=== PATIENT | male | born 1970 | race Caucasian/White ===

== ENCOUNTER 2018-11-28 13:44 | Emergency (ER) | payer BC, OTHER ==
[~2018-11-28] VITALS: Ht 185.4 cm; Wt 99.8 kg
--- OUTSIDE RECORDS SUMMARY | 2018-11-28 13:51 | XMS REPORT ---
Author Author SANYA YAP [facility] Address [address] [place] [address] Care Team Providers Care Fitter/Welder Name Role Phone SANYA YAP Unavailable PROBLEMS Type Condition ICD9-CM Code DRQ64-OF Code Onset Dates Condition Status SNOMED Code Problem Coronary artery disease involving [place] coronary artery of [place] heart without angina pectoris I25.10 Active 1296421465577 Problem Irritable bowel syndrome with both constipation and diarrhea K58.2 Active 34922599 ALLERGIES No Known Allergies ENCOUNTERS Encounter Location Date Diagnosis [id number] [place] [address] [id number] Jul, [place] [id number] [place] [address] [id number] Jun, Coronary artery disease involving [place] coronary artery of [place] heart without angina pectoris I25.10 and Irritable bowel syndrome with both constipation and diarrhea K58.[address] [place] [address] [id number] Apr, Coronary artery disease involving [place] coronary artery of [place] heart without angina pectoris I25.10 and Irritable bowel syndrome with both constipation and diarrhea K58.[address] [facility] [address] [id number] [place] [address] Dec, Irritable bowel syndrome with both constipation and diarrhea K58.[id number] [place] [address] [id number] Nov, Irritable bowel syndrome with both constipation and diarrhea K58.2 [address] [place] [address] [id number] Nov, Generalized abdominal pain R10.84 IMMUNIZATIONS No Known Immunizations SOCIAL HISTORY Never Assessed REASON FOR VISIT Stomach pain, states he feels a knot in abd KJones RN PLAN OF CARE Activity Details Follow Up 1 Week Reason:abd pain VITAL SIGNS Height 72 in 2016-12-15 Weight 243.2 lbs 2016-12-15 Temperature 98.5 degrees Fahrenheit 2016-12-15 Heart Rate 79 bpm 2016-12-15 Respiratory Rate 18 2016-12-15 BMI 32.98 kg/m2 2016-12-15 Blood pressure systolic 118 mmHg 2016-12-15 Blood pressure diastolic 72 mmHg 2016-12-15 MEDICATIONS Medication Instructions Dosage Frequency Start Date End Date Duration Status Simethicone Extra Strength 125 MG Orally Four times a day 1 capsule after meals and at bedtime as needed 6h Nov, Active Dicyclomine HCl 10 mg Orally 3 times a day w meal 1 capsules Nov, Active RESULTS Name Result Date Reference Range KUB PROCEDURES No Known procedures INSTRUCTIONS MEDICATIONS ADMINISTERED No Known Medications MEDICAL (GENERAL) HISTORY Type Description Date Medical History 04/26/17, [place] Surgical History appendectomy Sep 2015 Surgical History cholecystectomy Sep 2015 Surgical History exploratory abd surgery Sep 2015 Hospitalization History surgery Hospitalization History abd issues Hospitalization History [place] [facility] 04/26/17
--- OUTSIDE RECORDS SUMMARY | 2018-11-28 13:51 | XMS REPORT ---
Author Author SANYA YAP [facility] Address [address] [place] [address] Care Team Providers Care Pharmacoepidemiologist Name Role Phone SANYA YAP Unavailable PROBLEMS Type Condition ICD9-CM Code HKH35-ZI Code Onset Dates Condition Status SNOMED Code Problem Coronary artery disease involving [place] coronary artery of [place] heart without angina pectoris I25.10 Active [id number] Problem Irritable bowel syndrome with both constipation and diarrhea K58.2 Active 15363777 ALLERGIES No Known Allergies ENCOUNTERS Encounter Location Date Diagnosis [id number] [place] [address] [id number] Jul, [place] [id number] [place] [address] [id number] Jun, Coronary artery disease involving [place] coronary artery of [place] heart without angina pectoris I25.10 and Irritable bowel syndrome with both constipation and diarrhea K58.[address] [place] [address] [id number] Apr, Coronary artery disease involving [place] coronary artery of [place] heart without angina pectoris I25.10 and Irritable bowel syndrome with both constipation and diarrhea K58.2 [facility] [address] [id number] [place] [address] Dec, Irritable bowel syndrome with both constipation and diarrhea K58.[id number] [place] [address] [id number] Nov, Irritable bowel syndrome with both constipation and diarrhea K58.[address] [place] [address] [id number] Nov, Generalized abdominal pain R10.84 IMMUNIZATIONS No Known Immunizations SOCIAL HISTORY Never Assessed REASON FOR VISIT Abdominal Pain Follow Up, states it is better Polly ZAVALA PLAN OF CARE Activity Details Follow Up 2 Months Reason:ibs VITAL SIGNS Height 72 in 2016-12-21 Weight 228.3 lbs 2016-12-21 Temperature 97.4 degrees Fahrenheit 2016-12-21 Heart Rate 82 bpm 2016-12-21 Respiratory Rate 18 2016-12-21 BMI 30.96 kg/m2 2016-12-21 Blood pressure systolic 118 mmHg 2016-12-21 Blood pressure diastolic 60 mmHg 2016-12-21 MEDICATIONS Medication Instructions Dosage Frequency Start Date End Date Duration Status Simethicone Extra Strength 125 MG Orally Four times a day 1 capsule after meals and at bedtime as needed 6h Nov, Active Dicyclomine HCl 10 mg Orally 3 times a day w meal 1 capsules Nov, Active RESULTS No Results PROCEDURES No Known procedures INSTRUCTIONS MEDICATIONS ADMINISTERED No Known Medications MEDICAL (GENERAL) HISTORY Type Description Date Medical History 04/26/17, [place] Surgical History appendectomy Sep 2015 Surgical History cholecystectomy Sep 2015 Surgical History exploratory abd surgery Sep 2015 Hospitalization History surgery Hospitalization History abd issues Hospitalization History ROMEO Segovia 04/26/17
--- OUTSIDE RECORDS SUMMARY | 2018-11-28 13:51 | XMS REPORT ---
Author Author SANYA YAP [facility] Address [address] [place] [address] Care Team Providers Care Graphic User Interface Designer Name Role Phone SANYA YAP Unavailable PROBLEMS Type Condition ICD9-CM Code ENQ35-SM Code Onset Dates Condition Status SNOMED Code Problem Coronary artery 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 angina pectoris I25.10 Active [id number] Problem Irritable bowel syndrome with both constipation and diarrhea K58.2 Active 39288059 ALLERGIES No Known Allergies ENCOUNTERS Encounter Location Date Diagnosis [id number] [place] [address] [id number] Jun, Coronary artery 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 angina pectoris I25.10 and Irritable bowel syndrome with both constipation and diarrhea K58.2 [address] [id number] Apr, Coronary artery 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 angina pectoris I25.10 and Irritable bowel syndrome with both constipation and diarrhea K58.2 [facility] [address] [id number] [place] [address] Dec, Irritable bowel syndrome with both constipation and diarrhea K58.[id number] [place] [address] [id number] Nov, Irritable bowel syndrome with both constipation and diarrhea K58.[address] [id number] [phone] Nov, Generalized abdominal pain R10.84 IMMUNIZATIONS No Known Immunizations SOCIAL HISTORY Never Assessed REASON FOR VISIT Hospital f/u for [place] on 04/26/17 then trasfered to [facility], ER visit for the flu Polly ZAVALA PLAN OF CARE Activity Details Follow Up 4 Weeks Reason:cad VITAL SIGNS Height 72 in 2017-05-13 Weight 228.4 lbs 2017-05-13 Temperature 97.7 degrees Fahrenheit 2017-05-13 Heart Rate 88 bpm 2017-05-13 Respiratory Rate 18 2017-05-13 BMI 30.97 kg/m2 2017-05-13 Blood pressure systolic 100 mmHg 2017-05-13 Blood pressure diastolic 60 mmHg 2017-05-13 MEDICATIONS Medication Instructions Dosage Frequency Start Date End Date Duration Status Plavix 75 MG Orally Once a day 1 tablet 24h Active Aspir-81 81 MG Orally Once a day 1 tablet 24h Active Dicyclomine HCl 10 mg Orally 3 times a day w meal 1 capsules Nov, Active Coreg 3.125 MG Orally 2 times a day 1 tab 12h Apr, Active Fish Oil 1000 MG Orally Once a day 2 capsule 24h Active Atorvastatin Calcium 20 mg Orally Once a day 1 tablet 24h Apr, Active RESULTS No Results PROCEDURES No Known procedures INSTRUCTIONS MEDICATIONS ADMINISTERED No Known Medications MEDICAL (GENERAL) HISTORY Type Description Date Medical History 04/26/17, [place] Surgical History appendectomy Sep 2015 Surgical History cholecystectomy Sep 2015 Surgical History exploratory abd surgery Sep 2015 Hospitalization History surgery Hospitalization History abd issues Hospitalization History [place] [facility] Segovia 04/26/17
--- OUTSIDE RECORDS SUMMARY | 2018-11-28 13:51 | XMS REPORT ---
Author Author SANYA YAP [facility] Address [address] [place] [address] Care Team Providers Care Ratings Analyst Name Role Phone SANYA YAP Unavailable PROBLEMS Type Condition ICD9-CM Code ZMX91-CP Code Onset Dates Condition Status SNOMED Code Problem Coronary artery disease involving [place] coronary artery of [place] heart without angina pectoris I25.10 Active [id number] Problem Irritable bowel syndrome with both constipation and diarrhea K58.2 Active 56354002 ALLERGIES No Known Allergies ENCOUNTERS Encounter Location Date Diagnosis [address] [place] [address] [id number] Jun, Coronary artery disease involving [place] coronary artery of [place] heart without angina pectoris I25.10 and Irritable bowel syndrome with both constipation and diarrhea K58.2 [facility] [address] [facility] [id number] [phone] Apr, Coronary artery disease involving [place] coronary artery of [place] heart without angina pectoris I25.10 and Irritable bowel syndrome with both constipation and diarrhea K58.2 [facility] [address] [id number] [place] [address] Dec, Irritable bowel syndrome with both constipation and diarrhea K58.[address] [id number] [phone] Nov, Irritable bowel syndrome with both constipation and diarrhea K58.[address] [id number] [phone] Nov, Generalized abdominal pain R10.84 IMMUNIZATIONS No Known Immunizations SOCIAL HISTORY Never Assessed REASON FOR VISIT CHM- f/u on JORGE L Gil MA PLAN OF CARE Activity Details Follow Up 4 Weeks Reason:ibs VITAL SIGNS Height 72 in 2017-07-22 Weight 226 lbs 2017-07-22 Temperature 97.8 degrees Fahrenheit 2017-07-22 Heart Rate 78 bpm 2017-07-22 Respiratory Rate 16 2017-07-22 BMI 30.65 kg/m2 2017-07-22 Blood pressure systolic 100 mmHg 2017-07-22 Blood pressure diastolic 64 mmHg 2017-07-22 MEDICATIONS Medication Instructions Dosage Frequency Start Date End Date Duration Status Plavix 75 MG Orally Once a day 1 tablet 24h Not-Taking Fish Oil 1000 MG Orally Once a day 2 capsule 24h Not-Taking Aspir-81 81 MG Orally Once a day 1 tablet 24h Not-Taking Imodium A-D 2 MG Orally 2 times a day 1 tablet as needed 12h Jun, Active Atorvastatin Calcium 20 mg Orally Once a day 1 tablet 24h Apr, Active Coreg 3.125 MG Orally 2 times a day 1 tab 12h Apr, Not-Taking RESULTS No Results PROCEDURES No Known procedures INSTRUCTIONS MEDICATIONS ADMINISTERED No Known Medications MEDICAL (GENERAL) HISTORY Type Description Date Medical History 04/26/17, [place] Surgical History appendectomy Sep 2015 Surgical History cholecystectomy Sep 2015 Surgical History exploratory abd surgery Sep 2015 Hospitalization History surgery Hospitalization History abd issues Hospitalization History [place] Se[facility] Segovia 04/26/17
[2018-11-28] MEDS ORDERED: ASPIRIN 81 MG CHEW (CHILDREN'S ASA) PO ONE (14:15)
[2018-11-28 14:22] LABS: BASOPHILS % (AUTO) 0 % (0-10); EOSINOPHILS # (AUTO) 0.1 10^3/uL (0.0-0.3); EOSINOPHILS % (AUTO) 1 % (0-10); HEMATOCRIT 46 % (40-54); HEMOGLOBIN 15.7 G/DL (13.3-17.7); LYMPHOCYTES # (AUTO) 2.1 X 10^3 (1.0-4.0); LYMPHOCYTES % (AUTO) 20 % (12-44); MEAN CORPUSCULAR HEMOGLOBIN 28 PG (25-34); MEAN CORPUSCULAR HGB CONC 34 G/DL (32-36); MEAN CORPUSCULAR VOLUME 81 FL (80-99); MEAN PLATELET VOLUME 9.9 FL (7.4-10.4); MONOCYTES # (AUTO) 0.8 X 10^3 (0.0-1.0); MONOCYTES % (AUTO) 7 % (0-12); NEUTROPHILS # (AUTO) 7.8 X 10^3 (1.8-7.8); NEUTROPHILS % (AUTO) 72 % (42-75); PLATELET COUNT 397 10^3/uL (130-400); RED CELL DISTRIBUTION WIDTH 13.5 % (10.0-14.5); WHITE BLOOD COUNT 10.8 10^3/uL (4.3-11.0)
--- NOTE | 2018-11-28 14:28 | ED Chest Pain ---
General Chief Complaint: Chest Pain Stated Complaint: CHEST TIGHTNESS/SOA Nursing Triage Note: PT STATES CURRENT CHEST PAIN STARTED BACK PAIN LAST NIGHT, HX OF AMI LAST YEAR. Nursing Sepsis Screen: No Definite Risk Source: patient Exam Limitations: no limitations History of Present Illness Date Seen by Provider: Nov 28, 2018 Time Seen by Provider: 14:06 Initial Comments Here with 2 days of central chest pain and back pain that has been persistent over that timeframe. Does report some shortness of breath but no other significant symptoms. Reports that he had an acute myocardial infarction last April but did not receive any stents and he is not currently on any medicines. He states he is supposed to be but isn't. Has not had aspirin today. Timing/Duration: 1-2 days Severity/Quality: moderate, tightness Location: central Radiation: back Activities at Onset: none Prior CP/Workup: cardiac cath, heart attack ASA po PAD MACHINE OFFBEARER: No NTG SL PAD MACHINE OFFBEARER: No Associated Symptoms: back pain; No diaphoresis, No edema; fatigue; No fever/chills, No nausea/vomiting; shortness of breath; No weakness Allergies and Home Medications Allergies Coded Allergies: No Known Drug Allergies (Unverified , 11/28/18) Home Medications Albuterol Sulfate 1 Puff Puff, 2 PUFF INH Q4H PRN for WHEEZING 1 PUFF = 90 MCG Prescribed by: CARO HORVATH on 11/28/18 1640 Patient Home Medication List Home Medication List Reviewed: Yes Review of Systems Review of Systems Constitutional: see HPI; No chills, No fever EENTM: No Symptoms Reported Respiratory: See HPI Cardiovascular: See HPI; Denies Irregular Heart Rate Gastrointestinal: Denies Nausea, Denies Vomiting Genitourinary: No Symptoms Reported Musculoskeletal: no symptoms reported Skin: no symptoms reported Psychiatric/Neurological: No Symptoms Reported Endocrine: No Symptoms Reported All Other Systems Reviewed Negative Unless Noted: Yes Past Rhwjfrm-Omkpbk-Fkoqrx Hx Past Med/Social Hx: Reviewed Nursing Past Med/Soc Hx Patient Social History Alcohol Use: Denies Use Recreational Drug Use: No (HX 0F DRUG USE, CLEAN FOR YEARS) Smoking Status: Current Everyday Smoker Type Used: Cigarettes Recent Foreign Travel: No Contact w/Someone Who Travel: No Recent Infectious Disease Expo: No Recent Hopitalizations: No Physical Abuse: No Sexual Abuse: No Mistreated: No Fear: No Seasonal Allergies Seasonal Allergies: No Past Medical History Surgeries: Yes Abdominal, Appendectomy, Gallbladder Respiratory: No Cardiac: Yes ("HEART ATTACK BUT NO DAMAGE TO HEART"-NO STENTS) Neurological: No Genitourinary: No Gastrointestinal: No Musculoskeletal: No Endocrine: No HEENT: No Cancer: No Psychosocial: No Integumentary: No Family Medical History Reviewed Nursing Family Hx No Pertinent Family Hx Physical Exam Vital Signs Vital Signs - First Documented 11/28/18 13:50 Temp 99.5 Pulse 94 Resp 20 B/P (MAP) 145/90 (108) Pulse Ox 97 O2 Delivery Room Air Capillary Refill : Less Than 3 Seconds Height, Weight, BMI Height: 6'1.00" Weight: 220lbs. oz. 99.990147jz; BMI Method:Stated General Appearance: No Apparent Distress, WD/WN HEENT: PERRL/EOMI, Pharynx Normal Neck: Non Tender, Supple Respiratory: Lungs Clear, Normal Breath Sounds Cardiovascular: Regular Rate, Rhythm, No Murmur Gastrointestinal: Non Tender, Soft Extremity: Normal Range of Motion, Non Tender Neurologic/Psychiatric: Alert, Oriented x3 Skin: Normal Color, Warm/Dry Progress/Results/Core Measures Results/Orders Lab Results Laboratory Tests Test 11/28/18 13:55 Range/Units White Blood Count 10.8 4.3-11.0 10^3/uL Red Blood Count 5.65 4.35-5.85 10^6/uL Hemoglobin 15.7 13.3-17.7 G/DL Hematocrit 46 40-54 % Mean Corpuscular Volume 81 80-99 FL Mean Corpuscular Hemoglobin 28 25-34 PG Mean Corpuscular Hemoglobin Concent 34 32-36 G/DL Red Cell Distribution Width 13.5 10.0-14.5 % Platelet Count 397 130-400 10^3/uL Mean Platelet Volume 9.9 7.4-10.4 FL Neutrophils (%) (Auto) 72 42-75 % Lymphocytes (%) (Auto) 20 12-44 % Monocytes (%) (Auto) 7 0-12 % Eosinophils (%) (Auto) 1 0-10 % Basophils (%) (Auto) 0 0-10 % Neutrophils # (Auto) 7.8 1.8-7.8 X 10^3 Lymphocytes # (Auto) 2.1 1.0-4.0 X 10^3 Monocytes # (Auto) 0.8 0.0-1.0 X 10^3 Eosinophils # (Auto) 0.1 0.0-0.3 10^3/uL Basophils # (Auto) 0.0 0.0-0.1 10^3/uL Prothrombin Time 13.9 12.2-14.7 SEC INR Comment 1.0 0.8-1.4 Activated Partial Thromboplast Time 29 24-35 SEC D-Dimer 1.56 H 0.00-0.49 UG/ML Sodium Level 138 135-145 MMOL/L Potassium Level 3.6 3.6-5.0 MMOL/L Chloride Level 104 98-107 MMOL/L Carbon Dioxide Level 23 21-32 MMOL/L Anion Gap 11 5-14 MMOL/L Blood Urea Nitrogen 16 7-18 MG/DL Creatinine 0.98 0.60-1.30 MG/DL Estimat Glomerular Filtration Rate > 60 BUN/Creatinine Ratio 16 Glucose Level 131 H 70-105 MG/DL Calcium Level 9.5 8.5-10.1 MG/DL Corrected Calcium 9.3 8.5-10.1 MG/DL Magnesium Level 1.9 1.8-2.4 MG/DL Total Bilirubin 0.4 0.1-1.0 MG/DL Aspartate Amino Transf (AST/SGOT) 18 5-34 U/L Alanine Aminotransferase (ALT/SGPT) 34 0-55 U/L Alkaline Phosphatase 104 40-136 U/L Myoglobin 33.5 10.0-92.0 NG/ML Troponin I < 0.028 <0.028 NG/ML Total Protein 7.2 6.4-8.2 GM/DL Albumin 4.3 3.2-4.5 GM/DL My Orders Orders - CARO HORVATH MD Ekg Tracing (11/28/18 13:49) Cbc With Automated Diff (11/28/18 14:11) Magnesium (11/28/18 14:11) Chest 1 View, Ap/Pa Only (11/28/18 14:11) Cardiac Profile 1 (11/28/18 14:11) Comprehensive Metabolic Panel (11/28/18 14:11) Myoglobin Serum (11/28/18 14:11) Protime With Inr (11/28/18 14:11) Partial Thromboplastin Time (11/28/18 14:11) O2 (11/28/18 14:11) Monitor-Rhythm Ecg Trace Only (11/28/18 14:11) Lipid Panel (11/29/18 06:00) Ed Iv/Invasive Line Start (11/28/18 14:11) Aspirin Chewable Tablet (Baby Aspirin Ch (11/28/18 14:15) Fibrin Degradation Products (11/28/18 14:11) Ed Iv/Invasive Line Start (11/28/18 14:29) Ns Iv 1000 Ml (Sodium Chloride 0.9%) (11/28/18 14:29) Ct Angio Chest W (11/28/18 14:46) Iohexol Injection (Omnipaque 350 Mg/Ml 1 (11/28/18 15:00) Di Iv Start (Assessment) .IV start (11/28/18 14:50) Received Contrast (Hold Metformin- Contr (11/28/18 15:00) Ns (Ivpb) (Sodium Chloride 0.9% Ivpb Bag (11/28/18 15:00) Rx-Albuterol Inhaler (Rx-Proair) (11/28/18 16:30) Medications Given in ED Current Medications Medications Dose Ordered Sig/Juan Route Start Time Stop Time Status Last Admin Dose Admin Albuterol Sulfate 2 PUFFS QID PRN IH 11/28/18 16:30 11/28/18 16:41 8.5 GM Aspirin 324 mg ONCE ONCE PO 11/28/18 14:15 11/28/18 14:16 DC 11/28/18 14:25 324 MG Iohexol 150 ml ONCE ONCE IV 11/28/18 15:00 11/28/18 15:01 DC 11/28/18 15:38 125 ML Sodium Chloride 100 ml ONCE ONCE IV 11/28/18 15:00 11/28/18 15:01 DC 11/28/18 15:38 80 ML Sodium Chloride 1,000 ml @ 0 mls/hr Q0M ONCE IV 11/28/18 14:29 11/28/18 14:30 DC 11/28/18 14:41 1,000 MLS/HR Vital Signs/I&O 11/28/18 11/28/18 11/28/18 13:50 14:02 14:25 Temp 99.5 99.5 Pulse 94 Resp 20 B/P (MAP) 145/90 (108) Pulse Ox 97 O2 Delivery Room Air Room Air Blood Pressure Mean: 108 Progress Progress Note : Progress Note Seen and evaluated. IV, labs, chest x-ray, EKG, ASA 324 mg by mouth ordered. Monitor patient. LR [address] angiogram of the chest ordered due to elevated d-dimer. Monitor patient. 1629: CT results noted. Discussed with patient. Patient informed of the need for 3 to 6 month follow-up for the mediastinal lymph nodes. This was expressed to him as well as his stepdaughter's. Overall he is feeling okay. Albuterol MDI teaching done. We will provide additional Rx for albuterol inhaler. He is instructed to follow-up with clinic for further evaluation and care. Discharged home with return precautions. Patient verbalize understanding instructions and agreement with plan. Initial ECG Impression Date: Nov 28, 2018 Initial ECG Impression Time: 13:47 Initial ECG Rate: 95 Initial ECG Rhythm: Normal Sinus Initial ECG Comparisson: No Previous ECG Available Comment Sinus rhythm with normal axis. No evidence of ST elevation [place]. No previous available for comparison. Interpreted by me. Diagnostic Imaging Diagonstic Imaging: Xray Plain Films/CT/US/NM/MRI: chest Comments [facility] [place] NAME: LISA NORRIS [facility] REC#: [id number] PT STATUS: REG ER : 1970 PHYSICIAN: CARO HORVATH MD ADMIT DATE: 11/28/18/ER Draft Date of Exam:11/28/18 CHEST 1 VIEW, AP/PA ONLY INDICATION: Chest tightness and shortness of air. TIME OF EXAM: 02:31 p.m. COMPARISON: No prior studies are available for comparison. FINDINGS: The heart size is normal. The pulmonary vascularity is unremarkable. The lungs are clear. No infiltrate, effusion, or pneumothorax is detected. IMPRESSION: No acute cardiopulmonary process is detected. Dictated on workstation # [id number] Dict: 11/28/18 1438 Trans: 11/28/18 1448 [id number] Interpreted by: ALBIN FLORES MD Electronically signed by: Diagonstic Imaging: CT Plain Films/CT/US/NM/MRI: chest Comments NAME: LISA NORRIS [facility] REC#: [id number] PT STATUS: REG ER : 1970 PHYSICIAN: CARO HORVATH MD ADMIT DATE: 11/28/18/ER Signed Date of Exam: 11/28/18 CT ANGIO CHEST W PROCEDURE: CT angiography of the chest with contrast. TECHNIQUE: Multiple contiguous axial images were obtained through the chest after uneventful bolus administration of intravenous contrast. 3D reconstructed CTA MIP acquisitions were also performed. Auto Exposure Controls were utilized during the CT exam to meet ALARA standards for radiation dose reduction. INDICATION: Chest pain and shortness of breath upon exertion. COMPARISON: No prior studies are available for comparison. FINDINGS: Pulmonary arterial system is without evidence of pulmonary emboli. No definite filling defects are seen within central, lobar, or segmental branches. The thoracic aorta is normal caliber. No dissection is seen. No axillary lymphadenopathy is identified. Mild nonspecific subcarinal fullness is identified measuring 2.5 x 1.7 cm. There are some mildly prominent lymph nodes in the yeimi particularly on the left measuring 1.9 x 1.4 cm. There are some prominent AP window nodes present. No pericardial or pleural fluid is seen. No pulmonary infiltrates, nodules, or masses are detected. Upper abdomen is unremarkable. IMPRESSION: 1. No evidence of pulmonary embolism or thoracic aortic dissection. 2. Nonspecific mediastinal and left hilar lymphadenopathy. Interval follow-up to confirm stability could be performed. A repeat study in three to six months could be performed. Dictated by: Dictated on workstation # [id number] Dict: 11/28/18 1536 Trans: 11/28/18 1547 Interpreted by: ALBIN FLORES MD Electronically signed by: ALBIN FLORES MD 11/28/18 1547 Departure Impression Primary Impression: Chest pain Qualified Codes: R07.9 - Chest pain, unspecified Additional Impressions: Bronchitis Mediastinal lymphadenopathy Disposition: 01 HOME, SELF-CARE Condition: Stable Departure-Patient Inst. Decision time for Depature: 16:31 Referrals: [facility] [facility] Patient Instructions: Acute Bronchitis, Adult (DC), Lymphadenitis, Chest Pain (DC) Add. Discharge Instructions: All discharge instructions reviewed with patient and/or family. Voiced understanding. You need to follow-up with your doctor this week for recheck and further evaluation and to discuss follow-up requirement for CT of the chest due to enlarged lymph nodes. Use inhaler as instructed. Return for worse pain, fever, vomiting, weakness, breathing problems or other concerns as needed. Scripts Prednisone (Prednisone) 20 Mg Tab 40 MG PO DAILY, #10 TAB 0 Refills Prov: CARO HORVATH MD 11/28/18 Albuterol Sulfate (VENTOLIN HFA) 1 Puff Puff 2 PUFF INH Q4H PRN for WHEEZING, #1 INHALER 0 Refills 1 PUFF = 90 MCG Prov: CARO HORVATH MD 11/28/18 Copy Copies To 1: MAR BERRY TIMOTHY D MD Nov 28, 2018 14:28
[2018-11-28 14:29] LABS: FIBRIN DEGRADATION PRODUCTS 1.56 UG/ML (0.00-0.49); PROTHROMBIN TIME PATIENT 13.9 SEC (12.2-14.7)
[2018-11-28] MEDS ORDERED: NS IV 1000 ML 1,000 ML IV ONE (14:29)
[2018-11-28 14:33] LABS: ALANINE AMINOTRANSFERASE 34 U/L (0-55); ALBUMIN 4.3 GM/DL (3.2-4.5); ALKALINE PHOSPHATASE 104 U/L (40-136); BILIRUBIN,TOTAL 0.4 MG/DL (0.1-1.0); BUN/CREATININE RATIO 16; CALCIUM 9.5 MG/DL (8.5-10.1); CARBON DIOXIDE 23 MMOL/L (21-32); CHLORIDE 104 MMOL/L (98-107); CREATININE SERUM 0.98 MG/DL (0.60-1.30); GFR ESTIMATED > 60; GLUCOSE 131 MG/DL (70-105); MAGNESIUM 1.9 MG/DL (1.8-2.4); POTASSIUM 3.6 MMOL/L (3.6-5.0); SODIUM 138 MMOL/L (135-145); TOTAL PROTEIN 7.2 GM/DL (6.4-8.2)
--- NOTE | 2018-11-28 14:48 | Diagnostic Imaging Report ---
INDICATION: Chest tightness and shortness of air. TIME OF EXAM: 02:31 p.m. COMPARISON: No prior studies are available for comparison. FINDINGS: The heart size is normal. The pulmonary vascularity is unremarkable. The lungs are clear. No infiltrate, effusion, or pneumothorax is detected. IMPRESSION: No acute cardiopulmonary process is detected. Dictated by: Dictated on workstation # [id number]
[2018-11-28] MEDS ORDERED: HOLD METFORMIN - RECEIVED CONTRAST 20 ML VIAL IV SCH (15:00)
[2018-11-28] MEDS ORDERED: NS 100 ML (IVPB) BAG IV ONE (15:00)
[2018-11-28] MEDS ORDERED: IOHEXOL 350 MG/ML 150 ML (OMNIPAQUE 350) VIAL IV ONE (15:00)
--- NOTE | 2018-11-28 15:46 | Diagnostic Imaging Report ---
PROCEDURE: CT angiography of the chest with contrast. TECHNIQUE: Multiple contiguous axial images were obtained through the chest after uneventful bolus administration of intravenous contrast. 3D reconstructed CTA MIP acquisitions were also performed. Auto Exposure Controls were utilized during the CT exam to meet ALARA standards for radiation dose reduction. INDICATION: Chest pain and shortness of breath upon exertion. COMPARISON: No prior studies are available for comparison. FINDINGS: Pulmonary arterial system is without evidence of pulmonary emboli. No definite filling defects are seen within central, lobar, or segmental branches. The thoracic aorta is normal caliber. No dissection is seen. No axillary lymphadenopathy is identified. Mild nonspecific subcarinal fullness is identified measuring 2.5 x 1.7 cm. There are some mildly prominent lymph nodes in the yeimi particularly on the left measuring 1.9 x 1.4 cm. There are some prominent AP window nodes present. No pericardial or pleural fluid is seen. No pulmonary infiltrates, nodules, or masses are detected. Upper abdomen is unremarkable. IMPRESSION: 1. No evidence of pulmonary embolism or thoracic aortic dissection. 2. Nonspecific mediastinal and left hilar lymphadenopathy. Interval follow-up to confirm stability could be performed. A repeat study in three to six months could be performed. Dictated by: Dictated on workstation # [id number]
[2018-11-28] MEDS ORDERED: RX-ALBUTEROL INHALER (PROAIR) 8.5 GM IH PRN (16:30)
[2018-11-28] MEDS ORDERED: RT-ALBUINH INH (16:40)
[2018-11-28] MEDS ORDERED: PRD20T PO (16:47)
[2018-11-28 16:54] VITALS: BP 113/70
== END 2018-11-28 16:53 | disposition home or self-care (01) ==
LOC: ER 13:47
DX: J40 Bronchitis, not specified as acute or chronic (principal); R59.0 Localized enlarged lymph nodes; I25.2 Old myocardial infarction; F17.210 Nicotine dependence, cigarettes, uncomplicated; Z95.9 Presence of cardiac and vascular implant and graft, unspecified; Z90.49 Acquired absence of other specified parts of digestive tract
CPT/HCPCS: 36415; 71045; 71275; 80053; 83735; 83874; 84484; 85025; 85379; 85610; 85730; 93005; 93041

== ENCOUNTER → 2018-12-19 | Outpatient (CLI) | payer BC ==
[~2018-12-19] MED LIST: CATHETER FLUSH 10 ML SYR IV PRN; HOLD METFORMIN - RECEIVED CONTRAST 20 ML VIAL IV SCH; IOHEXOL 350 MG/ML 100 ML (OMNIPAQUE 350) VIAL IV ONE; NS 100 ML (IVPB) BAG IV ONE; PRD20T PO; RT-ALBUINH INH
--- NOTE | 2018-12-19 12:22 | Diagnostic Imaging Report ---
PROCEDURE: CT chest and abdomen with contrast. TECHNIQUE: Multiple contiguous axial images were obtained through the chest and abdomen after the administration of intravenous contrast. Auto Exposure Controls were utilized during the CT exam to meet ALARA standards for radiation dose reduction. INDICATION: Lymphadenopathy. FINDINGS: Comparison is 11/28/2018. The lungs are clear. No edema or pneumonia. No pleural effusion or pneumothorax. No suspicious pulmonary nodules. Heart size is normal. No pericardial effusion. Aorta is normal in caliber. No central pulmonary embolism. There is no axillary or supraclavicular lymphadenopathy. Indeterminate mediastinal lymph nodes are mildly enlarged with right lower paratracheal lymph node measuring 13 mm and a subcarinal lymph node measuring 14 mm, previously 17 mm. Left hilar lymph node is decreased in size measuring 9 mm, previously 11 mm. The liver is normal. No focal liver lesions are seen. Gallbladder is absent. Portal vein is patent. Pancreas, spleen and adrenal glands are normal. Kidneys enhance symmetrically without focal lesion. No hydronephrosis. No dilated loops of bowel are seen. No free fluid or air. There is no lymphadenopathy in the upper abdomen. Abdominal aorta is normal in caliber. There are no suspicious osseous lesions. IMPRESSION: 1. Persistently enlarged but decreased size of mediastinal lymph nodes, these are indeterminate and may be related to a resolving systemic infectious process. 2. Normal upper abdomen. Dictated by: Dictated on workstation # [id number]
== END ==
LOC: RAD 10:15
PROVIDERS: ATTEND Nurse Practitioner Family
DX: R59.0 Localized enlarged lymph nodes (principal); Z90.49 Acquired absence of other specified parts of digestive tract
CPT/HCPCS: 71260; 74160

== ENCOUNTER 2019-06-11 12:13 | Emergency (ER) | payer BC ==
[~2019-06-11] VITALS: Ht 185.5 cm; Wt 100.0 kg
[~2019-06-11 12:13] MED LIST changes: -CATHETER FLUSH 10 ML SYR IV PRN; -HOLD METFORMIN - RECEIVED CONTRAST 20 ML VIAL IV SCH; -IOHEXOL 350 MG/ML 100 ML (OMNIPAQUE 350) VIAL IV ONE; -NS 100 ML (IVPB) BAG IV ONE
--- NOTE | 2019-06-11 13:26 | ED Cough/URI ---
General Chief Complaint: Cough/Cold/Flu Symptoms Stated Complaint: LUNG PAIN/SORE THROAT Nursing Triage Note: PT AMB TO TRIAGE WITH COMPLAINT OF COUGH, FEVER, AND SORE THROAT. STATES HAS BEEN GOING ON FOR A FEW WEEKS. Sepsis Screen: No Definite Risk Source: patient Exam Limitations: no limitations History of Present Illness Date Seen by Provider: Jun 11, 2019 Time Seen by Provider: 13:26 Initial Comments 49-year-old male patient presents with complaints of a cough for "a few weeks". Patient states he has had intermittent symptoms and once again developed symptoms a couple of days ago. Also has noticed a sore throat and fever. Denies body aches, nausea, or vomiting. Denies contacting her family practitioner for symptoms. Denies taking any aquf-uit-zgyjrkc decongestants, cough suppressants, Tylenol, or ibuprofen. Timing/Duration: getting worse, other (today onset. See history of present illness.) Severity/Quality: other (chest congestion with a nonproductive cough) Prior Episodes/Possible Cause: no prior episodes Modifying Factors: Worse With Coughing Allergies and Home Medications Allergies Coded Allergies: No Known Drug Allergies (Unverified , 11/28/18) Home Medications Albuterol Sulfate 1 Puff Puff, 2 PUFF INH Q4H PRN for WHEEZING 1 PUFF = 90 MCG Prescribed by: CARO HORVATH on 11/28/18 1640 Albuterol Sulfate 1 Puff Puff, 2 PUFF IH Q4H PRN for WHEEZING 1 PUFF = 90 MCG Prescribed by: NATHAN DAMON on 06/11/19 1419 Benzonatate 100 Mg Capsule, 200 MG PO TID PRN for COUGH Prescribed by: NATHAN DAMON on 06/11/19 1419 Oseltamivir Phosphate 75 Mg Capsule, 75 MG PO BID Prescribed by: NATHAN DAMON on 06/11/19 1419 Prednisone 20 Mg Tab, 40 MG PO DAILY Prescribed by: CARO HORVATH on 11/28/18 1647 Patient Home Medication List Home Medication List Reviewed: Yes Review of Systems Review of Systems Constitutional: see HPI, chills, fever, malaise EENTM: see HPI, hoarseness, nose congestion, throat pain; No ear pain Respiratory: cough, phlegm (patient reports chest congestion, but states he is not able to cough anything up); No short of breath, No stridor, No wheezing (intermittent wheezing, but denies current wheezing) Cardiovascular: No chest pain, No edema, No palpitations, No syncope Gastrointestinal: No abdominal pain, No constipation, No diarrhea, No nausea, No vomiting Genitourinary: no symptoms reported Musculoskeletal: no symptoms reported Skin: no symptoms reported Psychiatric/Neurological: No Symptoms Reported All Other Systems Reviewed Negative Unless Noted: Yes (Negative excepted noted.) Past Mcrakdb-Kxkvvr-Fvmpwj Hx Past Med/Social Hx: Reviewed Nursing Past Med/Soc Hx Patient Social History Alcohol Use: Denies Use Recreational Drug Use: No Smoking Status: Current Everyday Smoker Type Used: Cigarettes Recent Foreign Travel: No Contact w/Someone Who Travel: No Recent Infectious Disease Expo: No Recent Hopitalizations: No Immunizations Up To Date Tetanus Booster (TDap): Unknown PED Vaccines UTD: Yes Seasonal Allergies Seasonal Allergies: No Past Medical History Surgeries: Yes Abdominal, Appendectomy, Gallbladder Respiratory: No Cardiac: Yes ("HEART ATTACK BUT NO DAMAGE TO HEART"-NO STENTS) Neurological: No Genitourinary: No Gastrointestinal: No Musculoskeletal: No Endocrine: No HEENT: No Cancer: No Psychosocial: No Integumentary: No Family Medical History Reviewed Nursing Family Hx No Pertinent Family Hx Physical Exam Vital Signs - First Documented Capillary Refill : Less Than 3 Seconds Height: 6'1.00" Weight: 220lbs. oz. 99.390253bm; 29.00 BMI Method:Stated General Appearance: WD/WN, no apparent distress HEENT: PERRL/EOMI, TMs normal, pharyngeal erythema, other (positive nasal congestion and clear rhinorrhea noted) Neck: non-tender, full range of motion, supple, normal inspection Respiratory: lungs clear, normal breath sounds, no respiratory distress, no accessory muscle use Cardiovascular: normal peripheral pulses, regular rate, rhythm, no edema, no gallop, no murmur Gastrointestinal: normal bowel sounds, non tender, soft Extremities: no pedal edema, normal capillary refill Neurologic/Psychiatric: alert, normal mood/affect, oriented x 3 Skin: normal color, warm/dry Progress/Results/Core Measures Suspected Sepsis Recent Fever Within 48 Hours: No Infection Criteria Present: None New/Unexplained Altered Menta: No Sepsis Screen: No Definite Risk SIRS Temperature: Pulse: 77 Respiratory Rate: 20 Blood Pressure 126 /79 Mean: 95 Results/Orders Lab Results Laboratory Tests Test 06/11/19 13:07 Range/Units Group A Streptococcus Screen NEGATIVE NEGATIVE Micro Results Microbiology 06/11/19 Influenza Types A,B Antigen ([facility]) - Final, Complete My Orders Orders - NATHAN DAMON Chest Pa/Lat (2 View) (06/11/19 13:33) Guaifenesin Tablet (Mucinex Tablet) (06/11/19 13:45) Benzonatate Capsule (Tessalon Perles) (06/11/19 13:45) Medications Given in ED Current Medications Medications Dose Ordered Sig/Juan Route Start Time Stop Time Status Last Admin Dose Admin Benzonatate 200 mg ONCE ONCE PO 06/11/19 13:45 06/11/19 13:46 DC 06/11/19 14:18 200 MG Guaifenesin 600 mg ONCE ONCE PO 06/11/19 13:45 06/11/19 13:46 DC 06/11/19 14:19 600 MG Vital Signs/I&O 06/11/19 06/11/19 06/11/19 12:20 12:20 14:31 Temp 36.6 36.6 Pulse 77 77 Resp 20 20 B/P (MAP) 126/79 (95) 126/79 (95) Pulse Ox 98 98 O2 Delivery Room Air Room Air Room Air Capillary Refill : Less Than 3 Seconds Blood Pressure Mean: 95 Diagnostic Imaging Diagonstic Imaging: Xray Plain Films/CT/US/NM/MRI: chest Comments Draft Date of Exam:06/11/19 CHEST PA/LAT (2 VIEW) INDICATION: Cough and fever. Correlation with CTA of the chest 11/28/2018. FINDINGS: Lungs are free. No evidence of focal pulmonary infiltrate or consolidation. There is no effusion. There is no pneumothorax. Heart size and mediastinal contours appear appropriate. Pulmonary vascularity appears normal. No acute or suspicious osseous abnormality is demonstrated. IMPRESSION: 1. No radiographic evidence of an acute cardiopulmonary process. Dictated on workstation # [id number] Reviewed: Reviewed by Me (radiology report reviewed by me) Departure Communication (Admissions) Patient seen and evaluated. Chest x-ray and lab results discussed with the patient. Patient reports improvement in symptoms with the Tessalon Perles and Mucinex. Plan for discharge to home. Impression Primary Impression: Influenza B Disposition: HOME, SELF-CARE Condition: Improved Departure-Patient Inst. Referrals: [facility] (PCP) Primary Care Physician SANYA YAP (Family) Primary Care Physician Patient Instructions: Flu, Adult (DC) Add. Discharge Instructions: All discharge instructions reviewed with patient and/or family. Voiced understanding. Medications as instructed. Ljzz-gdd-dvymrxi Tylenol, ibuprofen, nasal decongestants, and histamines, and cough suppressants as needed for symptomatic relief. Avoid smoking. Stay well-hydrated. Follow-up with your family practitioner for recheck as an outpatient. Return in the emergency department for worsened symptoms or any other concerns. Scripts Benzonatate (TESSALON PERLES) 100 Mg Capsule 200 MG PO TID PRN for COUGH, #30 CAP 0 Refills Prov: NATHAN DAMON 06/11/19 Albuterol Sulfate (PROAIR HFA) 1 Puff Puff 2 PUFF IH Q4H PRN for WHEEZING, #1 EA 0 Refills 1 PUFF = 90 MCG Prov: NATHAN DAMON 06/11/19 Oseltamivir Phosphate (Oseltamivir Phosphate) 75 Mg Capsule 75 MG PO BID, #10 CAP 0 Refills Prov: NATHAN DAMON 06/11/19 NATHAN DAMON Jun 11, 2019 13:26
[2019-06-11] MEDS ORDERED: guaiFENesin (MUCINEX) 600 MG TAB PO ONE (13:45)
[2019-06-11] MEDS ORDERED: BENZONATATE 100 MG (TESSALON) CAPSULE PO ONE (13:45)
--- NOTE | 2019-06-11 14:12 | Diagnostic Imaging Report ---
INDICATION: Cough and fever. Correlation with CTA of the chest 11/28/2018. FINDINGS: Lungs are free. No evidence of focal pulmonary infiltrate or consolidation. There is no effusion. There is no pneumothorax. Heart size and mediastinal contours appear appropriate. Pulmonary vascularity appears normal. No acute or suspicious osseous abnormality is demonstrated. IMPRESSION: 1. No radiographic evidence of an acute cardiopulmonary process. Dictated by: Dictated on workstation # [id number]
[2019-06-11] MEDS ORDERED: RT-ALBUINH IH (14:19)
[2019-06-11] MEDS ORDERED: OSEL75CA15 PO (14:19)
[2019-06-11] MEDS ORDERED: BENZ100C18 PO (14:19)
[2019-06-11 14:31] VITALS: BP 126/79
== END 2019-06-11 14:31 | disposition home or self-care (01) ==
LOC: EDUNIT# 12:13 → ER 12:14
DX: J10.1 Influenza due to other identified influenza virus with other respiratory manifestations (principal); I25.2 Old myocardial infarction; F17.210 Nicotine dependence, cigarettes, uncomplicated; Z79.52 Long term (current) use of systemic steroids
CPT/HCPCS: 71046; 87430; 87804

== ENCOUNTER 2020-01-05 05:39 | Outpatient (RCR) | payer BC ==
[~2020-01-05] VITALS: Ht 185.4 cm; Wt 103.1 kg
[~2020-01-05 05:39] MED LIST changes: +BENZ100C18 PO; +OSEL75CA15 PO; +RT-ALBUINH IH
== END 2020-01-05 10:03 | disposition home or self-care (01) ==
LOC: PREOP 05:39
PROVIDERS: ATTEND Surgery
DX: Z01.818 Encounter for other preprocedural examination (principal); Z01.812 Encounter for preprocedural laboratory examination; K21.9 Gastro-esophageal reflux disease without esophagitis; R19.7 Diarrhea, unspecified; Z20.828 Contact with and (suspected) exposure to other viral communicable diseases
CPT/HCPCS: 87635

== ENCOUNTER 2020-01-10 08:10 | Day surgery (SDC) | payer BC ==
[~2020-01-10] VITALS: Ht 185.4 cm; Wt 103.1 kg
[2020-01-10] VITALS (13 sets, daily range): BP systolic 100–134; BP diastolic 55–89
[2020-01-10] MEDS ORDERED: NS IV 500 ML 500 ML IV PRN (08:22)
--- NOTE | 2020-01-10 08:28 | Conscious Sedation/ASA ---
Conscious Sedation Pre-Proced Time 08:00 ASA Score 2 For ASA 3 and 4: Consider anesthesia and medical clearance. Also, for patients with a history of failed moderate sedation consider anesthesia. Airway Lungs Heart ASA score ASA 1: a normal healthy patient ASA 2: a patient with a mild systemic disease (mid diabetes, controlled hypertension, obesity ASA 3: a patient with a severe systemic disease that limits activity (angina, COPD, prior Myocardial infarction) ASA 4: a patient with an incapacitating disease that is a constant threat to life (CHF, renal failure) ASA 5: a moribund patient not expected to survive 24 hrs. (ruptured aneurysm) ASA 6: a declared brain- patient whose organs are being harvested. For emergent operations, add the letter E after the classification Mallampati Classification Grade 2 Sedation Plan Analgesia, Amnesia, Plan communicated to team members, Discussed options with patient/fam, Discussed risks with patient/fam The patient is an appropriate candidate to undergo the planned procedure, sedation, and anesthesia. The patient immediately re-assessed prior to indication. YESENIA GRULLON MD Jan 10, 2020 08:28
[2020-01-10] MEDS ORDERED: NS IV 500 ML 500 ML ONE (08:29)
--- NOTE | 2020-01-10 08:29 | Progress Note-Pre Operative ---
Pre-Operative Progress Note H&P Reviewed The H&P was reviewed, patient examined and no changes noted. Date Seen by Provider: Jan 10, 2020 Time Seen by Provider: 08:00 Date H&P Reviewed: Jan 10, 2020 Time H&P Reviewed: 08:00 Pre-Operative Diagnosis: GERD, change bowel habits YESENIA GRULLON MD Jan 10, 2020 08:29
[2020-01-10] MEDS ORDERED: HURRICAINE EXT TUBE (BENZOCAINE) XX PRN (08:30)
[2020-01-10] MEDS ORDERED: fentaNYL INJECTION 100 MCG/2 ML AMP IVP ONE (08:30)
[2020-01-10] MEDS ORDERED: LIDOCAINE JELLY 2% 6 ML SYRINGE MM PRN (08:30)
[2020-01-10] MEDS ORDERED: ONDANSETRON 4 MG/2 ML (SDV) Z0FRAN IVP PRN (08:30)
[2020-01-10] MEDS ORDERED: HYDROcodone/APAP 5 MG/325 MG (LORTAB) TAB PO PRN (08:30)
[2020-01-10] MEDS ORDERED: PANT40TA2 PO (08:30)
[2020-01-10] MEDS ORDERED: ACETAMINOPHEN 325 MG TABLET PO PRN (08:30)
[2020-01-10] MEDS ORDERED: morphine INJ 10 MG/ML 1ML (SYR OR VIAL) IVP PRN ×2 (08:30)
--- NOTE | 2020-01-10 08:31 | Discharge Inst-Surgical ---
D/C Lap Instructions-KID[place]coe New, Converted, or Re-Newed RX: RX on Chart Follow Up Activity as tolerated High Fiber Diet 25g or more per day Avoid Alcohol, Caffeine, Spicy [place] and Acid foods. Drink 64 fluid oz or more of fluids per day. Symptoms to Report: Fever over 101 degree F, Nausea/Vomiting If any problems/questions: Contact your physician or go to Emergency Room YESENIA GRULLON MD Jan 10, 2020 08:31
[2020-01-10] MEDS ORDERED: MIDAZOLAM 5 MG/5 ML (VERSED) VIAL ONE ×3 (09:11)
[2020-01-10] MEDS ORDERED: fentaNYL INJECTION 100 MCG/2 ML AMP ONE ×2 (09:11)
[2020-01-10] MEDS ORDERED: LIDOCAINE JELLY 2% 6 ML SYRINGE ONE (09:11)
[2020-01-10] MEDS ORDERED: HURRICAINE EXT TUBE (BENZOCAINE) ONE (09:12)
[2020-01-10] MEDS: MIDAZOLAM 5 MG/5 ML (VERSED) VIAL IV PRN ×6 (09:20→09:41)
--- NOTE | 2020-01-10 09:58 | Progress Note-Post Operative ---
Post-Operative Progess Note Surgeon (s)/Strand And Binder Controller (s) Surgeon YESENIA GRULLON MD Strand And Binder Controller: none Pre-Operative Diagnosis GERD, change bowel habits Post-Operative Diagnosis reflux esophagitis(stage 2), small HH(1.5cm), moderate-severe gastritis. mild chronic stage 2 ext and int hemorrhoids. Procedure & Operative Findings Date of Procedure 01/10/20 Procedure Performed/Findings EGD with bx. Colonoscopy Anesthesia Type cs Estimated Blood Loss Estimated blood loss (mL): minimal Specimens/Packing Specimens Removed ge jxn, antrum YESENIA GRULLON MD Jan 10, 2020 09:58
--- NOTE | 2020-01-10 12:55 | OPERATIVE REPORT ---
DATE OF SERVICE: 01/10/2020 ATTENDING COMPLIANCE FIELD TECHNICIAN: [facility]. PREOPERATIVE DIAGNOSES: Gastroesophageal reflux disease. Persistent diarrhea. POSTOPERATIVE DIAGNOSES: Gastroesophageal reflux esophagitis stage II, small hiatal hernia 1.5 cm in size, moderate gastritis, chronic stage II external and internal hemorrhoids. The remainder of the rectum and colon were normal with no mucosal inflammatory changes. PROCEDURE: EGD with biopsy, colonoscopy. SURGEON: Leslie Appiah MD. ANESTHESIA: Conscious sedation. ESTIMATED BLOOD LOSS: Minimal. FINDINGS: Gastroesophageal reflux esophagitis stage II, small hiatal hernia 1.5 cm in size, moderate gastritis, chronic stage II external and internal hemorrhoids. The remainder of the rectum and colon were normal with no mucosal inflammatory changes. DISPOSITION: The patient tolerated the procedure well. INDICATIONS: The patient is a 49-year-old male referred over to us for persistent and chronic diarrhea as well as reflux. He states that since he had an exploratory laparotomy as well as a cholecystectomy done approximately 5 years ago, he has had issues with persistent diarrhea. He has taken a cholestyramine as well as Imodium in the past, which he states did not help. He also does have issues with reflux and regurgitation; however, he does have risk factors including a [id number] smoking. DESCRIPTION OF PROCEDURE: The patient was brought to the endoscopy suite, laid in the left lateral decubitus position. After adequate IV pain and stated medications and conscious sedation anesthesia, the mouthpiece was applied. The endoscope was placed in the mouth, visualizing the pharynx and hypopharyngeal region. Vocal cords, epiglottis and vallecula identified and appeared to be normal. The endoscope was then gently intubated into the esophageal opening and esophagus insufflated. The endoscope was then advanced to the first, second and third portion of esophagus at the level of the GE junction, a reflux esophagitis stage II identified. There were no ulcers or strictures identified in this region. A biopsy was taken of the GE junction with forceps with visualization of good hemostasis. The endoscope was then advanced into the stomach and endoscope retroflexed, visualizing a small hiatal hernia approximately 1.5 cm in size. There was a moderate severity gastritis. No formal ulcerations, polyps, or any neoplasms. A biopsy was taken of the antrum to rule out H. pylori with visualization of good hemostasis. The endoscope was then advanced to the pylorus and the first and second portion of the duodenum, which appeared normal with no ulcerations as well as no mucosal inflammatory changes. The endoscope was then slowly withdrawn while taking a second look and suctioning of residual air with no additional findings. Under the same anesthesia, we then proceeded with colonoscopy portion of the procedure. Digital rectal examination was performed, which revealed mild chronic stage II external and internal hemorrhoids, not actively edematous nor inflamed and no bleeding. Normal sphincter tone was felt and there were no palpable masses. Prostate gland was palpable and appeared to be normal. The endoscope was then intubated and anus and rectum gently insufflated. The endoscope was then advanced to the valves of Carlin of the rectum with no polyps or any neoplasms identified. We then proceeded through the sigmoid colon where there were no diverticulosis identified. Endoscope was then advanced to the remainder of the descending, transverse and ascending colon to the cecum. These segments were normal. There were no polyps or any neoplasms identified as well as no mucosal inflammatory changes to indicate any inflammatory bowel disease. The endoscope was then slowly withdrawn while taking a second look and suctioning of residual air with no additional findings. The patient tolerated the procedure well. We will start him on Protonix 40 mg daily as well as the necessary lifestyle and diet accommodation including smoking cessation as well as avoidance of caffeinated beverages, spicy, greasy and acidic foods as well as small and more frequent meals, avoiding eating at night. I also want him to proceed with a high fiber diet through supplemental means which did encompass 30 grams of fiber daily to promote soft stools that do have some formed and the prevention of diarrhea. Job ID: [id number] DocumentID: [id number] Dictated Date: 01/10/2020 09:52:50 Hr Shared Services Consultant Date: 01/10/2020 12:54:10 Dictated By: MD LIZZETH GAR
== END 2020-01-10 10:40 | disposition home or self-care (01) ==
LOC: ENDO 08:10
PROVIDERS: ATTEND Surgery
DX: K21.0 Gastro-esophageal reflux disease with esophagitis (principal); K29.50 Unspecified chronic gastritis without bleeding; B96.81 Helicobacter pylori [H. pylori] as the cause of diseases classified elsewhere; K44.9 Diaphragmatic hernia without obstruction or gangrene; K64.1 Second degree hemorrhoids; K52.9 Noninfective gastroenteritis and colitis, unspecified; I25.2 Old myocardial infarction; F17.210 Nicotine dependence, cigarettes, uncomplicated
CPT/HCPCS: 88304